=== PATIENT | female | born 1940 | race Two or more races ===

== ENCOUNTER 2020-05-01 12:16 | Emergency (ER) | payer MEDICARE, MEDICAID ==
[~2020-05-01] VITALS: Ht 165.1 cm; Wt 74.8 kg
[2020-05-01 12:17] VITALS: BP 177/80
--- NOTE | 2020-05-01 12:25 | Emergency Room Report ---
History of Present Illness General Chief Complaint: Upper Extremity Injury Source: Patient, Family Member, EMS Present Illness HPI This patient was found by EMS. Apparently the patient tripped over a dog and fell and hit her left shoulder. She has severe pain in her left shoulder. She is unable to move the shoulder. She has no other injuries or complaints. She denies headache or neck pain. She denies headache. She denies chest pain or shortness of breath. She denies abdominal pain. Allergies: Coded Allergies: No Known Allergies (Unverified , 05/01/20) COVID-19 Screening Contact w/high risk pt: No Experienced COVID-19 symptoms?: No COVID-19 Testing performed DIAGRAM CLERK: No Patient History Past Medical History: see triage record, DM, HTN, other - Hypothyroid Social History: Denies: smoking, alcohol use, drug use Reviewed Nursing Documentation: PMH: Agreed; PSxH: Agreed Nursing Documentation-PMH Hx Hypertension: Yes - HYPERTHYROIDISM Hx Diabetes: Yes Review of Systems All Other Systems: negative except mentioned in HPI Physical Exam Vital Signs Date Time Temp Pulse Resp B/P (MAP) Pulse Ox O2 Delivery O2 Flow Rate FiO2 05/01/20 12:11 98.1 121 19 177/80 (112) 97 Sp02 EP Interpretation: reviewed, normal General Appearance: no apparent distress, alert, GCS 15, non-toxic Head: normocephalic, atraumatic Eyes: bilateral eye normal inspection, bilateral eye PERRL ENT: hearing grossly normal, normal pharynx, no angioedema, normal voice Neck: normal inspection, full range of motion Respiratory: chest non-tender, lungs clear, normal breath sounds, no respiratory distress, no retraction, no accessory muscle use, speaking full sentences Cardiovascular #1: regular rate, rhythm, no edema Gastrointestinal: normal inspection, non tender, soft, non-distended, no guarding, no rebound Rectal: deferred Musculoskeletal: back normal, tender - Exquisitely TTP over the L. proximal humerus/humeral head. Neurologic: alert, motor strength/tone normal, oriented x3, sensory intact, responsive, speech normal Psychiatric: judgement/insight normal, memory normal, mood/affect normal, no suicidal/homicidal ideation Medical Decision Making Diagnostic Impression: Primary Impression: Shoulder dislocation ER Course This patient presented with a L. shoulder dislocation. The shoulder was reduced with traction and scapular manipulation. Reduction was obtained without complication or incident. Postreduction x-ray shows appropriate placement. The patient was placed in a sling. The patient was instructed that she must follow-up closely with an orthopedic surgeon as her shoulder joint is likely unstable. It is also related to the patient's family member that accompanied the patient. Other X-Ray Diagnostic Results Other X-Ray Diagnostic Results : X-Ray ordered: L. shoulder xray # of Views/Limited Vs Complete: Complete Indication: Pain EP Interpretation: Yes Interpretation: other - Anterior dislocation. Impression: Other - L. anterior shoulder dislocation. Electronically Signed by: Alisa Loredo DO CT/MRI/US Diagnostic Results CT/MRI/US Diagnostic Results : Imaging Test Ordered: L. shoulder xray post-reduction Impression Postreduction shoulder x-ray shows appropriate reduction. Last Vital Signs Date Time Temp Pulse Resp B/P (MAP) Pulse Ox O2 Delivery O2 Flow Rate FiO2 05/01/20 12:11 98.1 121 19 177/80 (112) 97 Status: improved Disposition: HOME, SELF-CARE Condition: Improved Patient Instructions: Anterior Shoulder Instability With Rehab-SportsMed, Shoulder Dislocation, [id number] Additional Instructions: Keep your arm in the sling you were given. You will need to follow-up with an orthopedic cast specialist as you may need surgery to repair the ligaments in your shoulder joint. Alisa Loredo DO May 01, 2020 12:25
[2020-05-01] MEDS ORDERED: Morphine Sulfate 4mg/ml Inj (IV USE ONLY) IVP ONE ×2 (12:30→13:15)
--- NOTE | 2020-05-01 13:59 | Diagnostic Imaging Report ---
Indication: Shoulder pain. Technique: XRAY Shoulder Ltd 1v L Comparison: None FINDINGS/IMPRESSION: There is complete dislocation of the glenohumeral joint with abnormal inferior and medial positioning of the humeral head relative to the glenoid. Humeral head projects anterior to the glenoid on the transscapular Y views compatible anterior shoulder dislocation. There are degenerative changes with prominent subacromial enthesophytes. No discrete acute fractures identified. Imaged portions of the left lung are grossly clear. No radiopaque foreign body.
--- NOTE | 2020-05-01 14:39 | Diagnostic Imaging Report ---
Indication: Shoulder pain status post injury Technique: 3 views of the left shoulder Comparison: Earlier the same day Findings/Impression: Successful reduction of the previously seen anterior shoulder dislocation. No acute fracture appreciated. There are degenerative changes of the acromioclavicular and glenohumeral joints with subacromial enthesophytes and small humeral head osteophytes.
[2020-05-01 15:00] VITALS: BP 132/79
[2020-05-01] MEDS ORDERED: ACETAMINOPHEN500 M3 ORAL (15:02)
[2020-05-01 15:15] VITALS: BP 132/79
== END 2020-05-01 15:15 | disposition home or self-care (01) ==
LOC: EDBD 12:16 → EMR 12:40
DX: S43.005A Unspecified dislocation of left shoulder joint, initial encounter (principal); W01.0XXA Fall on same level from slipping, tripping and stumbling without subsequent striking against object, initial encounter; Y92.9 Unspecified place or not applicable; E11.9 Type 2 diabetes mellitus without complications; I10 Essential (primary) hypertension; E03.9 Hypothyroidism, unspecified
CPT/HCPCS: 23650; 73020; 73030; 82962; 96361; 96374; 96375; 96376; 99284; J2270; J2405; J7030